=== PATIENT | male | born 1980 | race Caucasian/White ===

== ENCOUNTER 2018-08-05 17:34 | Inpatient (IN) | payer MEDICAID ==
[~2018-08-05] VITALS: Ht 182.9 cm; Wt 87.3 kg
[2018-08-05] MEDS ORDERED: ZOLPIDEM TARTRATE 10 MG TABLET PO PRN (22:00)
[2018-08-05] MEDS ORDERED: ZOLPIDEM TARTRATE 10 MG TABLET ONE (22:37)
[2018-08-05] MEDS ORDERED: LORazepam 2 MG TABLET ONE (22:40)
[2018-08-05 23:01] VITALS: BP 135/88
[2018-08-05] MEDS: LORazepam 2 MG TABLET PO PRN (23:08)
[2018-08-05] MEDS ORDERED: MAGNESIUM HYDROXIDE SUSPENSION 30 ML UDCUP PO PRN (23:45)
[2018-08-05] MEDS ORDERED: LOPERAMIDE HCL 2 MG CAPSULE PO PRN (23:45)
[2018-08-05] MEDS ORDERED: ALBUTEROL SULFATE HFA 90 MCG/PUFF 8 GM INHALER IH PRN (23:45)
[2018-08-05] MEDS ORDERED: MAG HYDROX/AL HYDROX/SIMETH ES 30 ML SUSPENSION UDCUP PO PRN (23:45)
[2018-08-05] MEDS ORDERED: ONDANSETRON HCL 4 MG TABLET PO PRN (23:45)
[2018-08-05] MEDS ORDERED: GuaiFENesin/D-METHORPHAN [SUGAR-FREE] 200-20MG/10 ML SYRUP UDCUP PO PRN (23:45)
[2018-08-05] MEDS ORDERED: DOCUSATE SODIUM 100 MG CAPSULE PO PRN (23:45)
[2018-08-05] MEDS ORDERED: NICOTINE 14 MG/24 HOUR PATCH TD PRN (23:45)
[2018-08-05] MEDS ORDERED: CloNIDine HCL 0.1 MG TABLET PO PRN (23:45)
[2018-08-05] MEDS ORDERED: ACETAMINOPHEN 325 MG TABLET PO PRN (23:45)
[2018-08-05] MEDS ORDERED: PETROLATUM,WHITE 28 GM JELLY TP PRN (23:45)
[2018-08-05] MEDS ORDERED: IBUPROFEN 400 MG TABLET PO PRN (23:45)
[2018-08-06 03:19] VITALS: BP 122/84
[2018-08-06 07:18] LABS: BASOPHILS % (AUTO) 0.6 % (0.0-2.0); EOSINOPHILS % (AUTO) 3.3 % (1.0-6.0); HEMATOCRIT 44.1 % (41-53); HEMOGLOBIN 14.9 g/dL (13.5-17.5); LYMPHOCYTES # (AUTO) 1.3 K/uL (1.0-4.8); LYMPHOCYTES % (AUTO) 21.1 % (22.0-44.0); MEAN CORPUSCULAR HEMOGLOBIN 32.1 pg (26.0-34.0); MEAN CORPUSCULAR HGB CONC 33.7 G/dL (31.0-37.0); MEAN CORPUSCULAR VOLUME 95 fL (80-100); MONOCYTES # (AUTO) 0.8 K/uL (0.1-1.0); PLATELET COUNT (AUTO) 247 K/uL (150-450); RED BLOOD CELL COUNT(AUTO) 4.63 MIL/uL (4.50-5.90)
[2018-08-06 08:02] LABS: ALANINE AMINOTRANSFERASE 52 U/L (12-78); ALBUMIN 3.4 g/dL (3.4-5.0); ALKALINE PHOSPHATASE 73 U/L (46-116); ANION GAP 10 mmol/L (8-16); ASPARTATE AMINOTRANSFERASE 36 U/L (15-37); BILIRUBIN,TOTAL 1.5 mg/dL (0.1-1.0); CARBON DIOXIDE 28 mmol/L (22-29); CHLORIDE 104 mmol/L (98-107); CHOL/HDL RATIO 2.5 (4.2-7.3); CHOLESTEROL 262 mg/dL (131-200); CREATININE 1.11 mg/dL (0.60-1.30); FREE T4 (FREE THYROXINE) 0.83 ng/dL (0.76-1.46); GLOMERULAR FILTR. RATE CALC > 60 mL/min (>60); GLUCOSE,RANDOM 106 mg/dL (70-110); HDL CHOLESTEROL 103 mg/dL (40-60); LDL CHOL (CALC.) 142 mg/dL (0-130); POTASSIUM 4.5 mmol/L (3.5-5.1); SODIUM SERUM 142 mmol/L (136-145); TOTAL PROTEIN, SERUM 6.7 g/dL (6.4-8.2); TRIGLYCERIDES 87 mg/dL (15-150); UREA NITROGEN, BLOOD 15 mg/dL (7-18)
[2018-08-06 08:14] VITALS: BP 125/79
[2018-08-06 08:20] LABS: HEMOGLOBIN A1C 5.7 % (4.5-6.2)
[2018-08-06] MEDS: LORazepam 2 MG TABLET PO PRN (11:50)
== END 2018-08-06 15:20 | disposition home or self-care (01) | DRG 751 ==
LOC: B3A 22:05
DX: F33.2 Major depressive disorder, recurrent severe without psychotic features (principal); E78.5 Hyperlipidemia, unspecified; F10.10 Alcohol abuse, uncomplicated
CPT/HCPCS: 83036; 84439; 84443; 87081